=== PATIENT | male | born 2000 | race Caucasian/White ===

== ENCOUNTER 2018-01-11 14:38 | Inpatient (IN) | payer OTHER ==
--- NOTE | 2018-01-11 15:59 | EDPHY ---
H & P Stated Complaint: gen abd pain, N/V, feeling anxious w/SI Time Seen by Provider: 01/11/18 15:58 HPI/ROS: HPI: This is a 17-year-old male who presents with Chief Complaint: gen abd pain, N/V, feeling anxious w/SI Location: psych Quality: Suicidal ideation Duration: 2 months Signs and Symptoms: no fever, no nausea, no vomiting, no hematemesis, no blood in stool, no abdominal bloating, no diarrhea, no back pain, no urinary symptoms , no testicular/groin pain, no indigestion, no chest pain, no shortness of breath Timing: Worse over the last week Severity: Severe Context: Patient has a history of major depression, anxiety disorder, gastric also presents with complaints of worsening despair and depression over the last 2 months since his break-up with his girlfriend 2 months ago. He reports that he is taking his Zoloft daily but does not like the decreased libido side effects. He reports that 1 month ago he attempted suicide. He also has a history of cutting with razors denies any recent cutting. Patient reports that he came to the emergency room today because he does not feel safe being by himself. He is originally from [place], [place]. 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 Patient reports that he has had decreased appetite, increased sleeping patterns, excessive crying. 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 He takes Nexium 20 mg twice daily. He complains of generalized abdominal pain worse in the epigastric area accompanied by nausea. He believes when he is crying he vomits due to"being worked up." He denies any fever, back pain, testicular groin pain, urinary symptoms. He has not eaten in 1 day due to decreased appetite. Denies any diarrhea. Modifying Factors: None Comment: ROS: A comprehensive 10 system review of systems is otherwise negative aside from elements mentioned in the history of present illness. MEDICAL/SURGICAL/SOCIAL HISTORY: Medical history: Gastric ulcer, anxiety, depression Surgical history: Denies Social history: Never smoked. Family history noncontributory. CONSTITUTIONAL: Flat affect, nontoxic appearing, teenage male, awake and alert, no obvious distress HEENT: Atraumatic and normocephalic, PERRL, EOMI. Nares patent; no rhinorrhea; no nasal mucosal edema. Tympanic membranes clear. Oropharynx clear, no exudate and moist pink mucosa. Airway patent. No lymphadenopathy. No meningismus. Cardiovascular: Normal S1/S2, regular rate, regular rhythm, without murmur rub or gallop. PULMONARY/CHEST: Symmetrical and nontender. Clear to auscultation bilaterally. Good air movement. No accessory muscle usage. ABDOMEN: Soft, nondistended, nontender, no rebound, no guarding, no peritoneal signs, no masses or organomegaly. No CVAT. EXTREMITIES: 2/2 pulses, strength 5/5, no deformities, no clubbing, no cyanosis or edema. NEUROLOGICAL: no focal neuro deficits. GCS 15. SKIN: Warm and dry, no erythema. no rash. Good capillary refill. PSYCH: Very self critical, Poor eye contact, no flight of ideas, organized thought process, fair insight and judgment, no auditory hallucinations, no visual hallucinations,+ suicidal ideation with a plan, no homicidal ideation, no paranoia Source: Patient Exam Limitations: No limitations - Medical/Surgical History Hx Asthma: No Hx Chronic Respiratory Disease: No Hx Diabetes: No Hx Cardiac Disease: No Hx Renal Disease: No Hx Cirrhosis: No Hx Alcoholism: No Hx HIV/AIDS: No Hx Splenectomy or Spleen Trauma: No Other PMH: gastric ulcer. anxiety depression - Social History Smoking Status: Never smoked Constitutional: Initial Vital Signs Temperature (C) 36.5 C 01/11/18 14:42 Heart Rate 85 01/11/18 14:42 Respiratory Rate 18 01/11/18 14:42 Blood Pressure 134/84 H 01/11/18 14:42 O2 Sat (%) 97 01/11/18 14:42 O2 Delivery Mode Room Air Allergies/Adverse Reactions: No Known Allergies Allergy (Unverified 01/11/18 14:41) Home Medications: Medication Instructions Recorded Nexium 01/11/18 Prozac 10 MG (*) 01/11/18 Medical Decision Making - Diagnostics Imaging Results: Imaging Impressions Abdomen X-Ray 01/11/18 16:09 Impression: Negative. ED Course/Re-evaluation: 1605: Placed on M1 hold upon arrival due to patient having severe major depression with suicidal ideation with a plan. Labs, abdominal x-ray to evaluate for free air secondary to gastric perforation , oral medications, urine drug screen ordered I suspect that his abdominal pain is related to his gastric ulcer and anxiety. Patient was given GI cocktail with adequate relief of pain. Abdomen is soft and nontender. Doubt surgical process. 1640: Urine drug screen positive for marijuana. 1645: Abdominal x-ray reviewed via PACs and shows nonobstructive bowel gas pattern. No free air. 1754: Labs reviewed. No signs of leukocytosis/anemia/platelet dysfunction/EVERETT/ elevated LFTs/electrolyte imbalance. Medically clear for mental health evaluation. 2051: Mental health recommends inpatient psychiatric admission. Patient has been accepted at [address] [place] [address] Kelley[address] EMTALA form completed by Dr. Pitts. This patient was seen under the supervision of my secondary supervising physician. I evaluated care for this patient independently. Discussed this patient with Dr. Pitts. Differential Diagnosis: Differential diagnosis includes but is not limited to major depression, bipolar disorder, suicidal ideation, generalized anxiety disorder. - Data Points Laboratory Results: Laboratory Results 01/11/18 16:50 01/11/18 16:50 01/11/18 01/11/18 01/11/18 16:50 16:50 16:00 WBC 9.07 10^3/uL 10^3/uL (3.80-9.50) RBC 7.89 10^6/uL H 10^6/uL (4.40-6.38) Hgb 15.6 g/dL g/dL (13.7-17.5) Hct 49.2 % % (40.0-51.0) MCV 62.4 fL L fL (81.5-99.8) MCH 19.8 pg L pg (27.9-34.1) MCHC 31.7 g/dL L g/dL (32.4-36.7) RDW 19.3 % H % (11.5-15.2) Plt Count 215 10^3/uL 10^3/uL (150-400) MPV TNP Neut % (Auto) 67.7 % % (39.3-74.2) Lymph % (Auto) 22.2 % % (15.0-45.0) [place] % (Auto) 7.2 % % (4.5-13.0) Eos % (Auto) 2.3 % % (0.6-7.6) Baso % (Auto) 0.3 % % (0.3-1.7) Nucleat RBC Rel Count 0.0 % % (0.0-0.2) Absolute Neuts (auto) 6.14 10^3/uL 10^3/uL (1.70-6.50) Absolute Lymphs (auto) 2.01 10^3/uL 10^3/uL (1.00-3.00) Absolute Monos (auto) 0.65 10^3/uL 10^3/uL (0.30-0.80) Absolute Eos (auto) 0.21 10^3/uL 10^3/uL (0.03-0.40) Absolute Basos (auto) 0.03 10^3/uL 10^3/uL (0.02-0.10) Absolute Nucleated RBC 0.00 10^3/uL 10^3/uL (0-0.01) Immature Gran % 0.3 % % (0.0-1.1) Immature Gran # 0.03 10^3/uL 10^3/uL (0.00-0.10) Platelet Estimate Pending Smear Review By Pending Sodium 139 mEq/L mEq/L (135-145) Potassium 4.0 mEq/L mEq/L (3.3-5.0) Chloride 102 mEq/L mEq/L (97-110) Carbon Dioxide 28 mEq/l mEq/l (22-31) Anion Gap 9 mEq/L mEq/L (8-16) BUN 10 mg/dL mg/dL (7-23) Creatinine 0.9 mg/dL mg/dL (0.7-1.3) Estimated GFR > 60 Glucose 95 mg/dL mg/dL (70-100) Calcium 10.4 mg/dL mg/dL (8.5-10.4) Total Bilirubin 0.9 mg/dL mg/dL (0.1-1.4) AST 20 IU/L IU/L (17-59) ALT 26 IU/L IU/L (21-72) Alkaline Phosphatase 88 IU/L IU/L (38-126) Total Protein 7.9 g/dL g/dL (6.3-8.2) Albumin 4.6 g/dL g/dL (3.5-5.0) Urine Opiates Screen NEGATIVE (NEGATIVE) Urine Barbiturates NEGATIVE (NEGATIVE) Ur Phencyclidine Scrn NEGATIVE (NEGATIVE) Ur Amphetamine Screen NEGATIVE (NEGATIVE) U Benzodiazepines Scrn NEGATIVE (NEGATIVE) Urine Cocaine Screen NEGATIVE (NEGATIVE) U Marijuana (THC) Screen NON-NEGATIVE H (NEGATIVE) Ethyl Alcohol < 10 mg/dL mg/dL (0-10) Medications Given: Discontinued Medications Al Hydroxide/Mg Hydroxide (Maalox Susp) 30 ml PO ONCE ONE Stop: 01/11/18 16:10 Last Admin: 01/11/18 16:42 Dose: 30 ml Hyoscyamine Sulfate (Levsin, Hyomax-Sl) 0.25 mg PO ONCE ONE Stop: 01/11/18 16:10 Last Admin: 01/11/18 16:42 Dose: 0.25 mg Lidocaine (Lidocaine 2% Viscous) 15 ml PO ONCE ONE Stop: 01/11/18 16:10 Last Admin: 01/11/18 16:42 Dose: 15 ml Departure - Departure Disposition: [facility] IP Clinical Impression: Severe major depression without psychotic features, Depression with suicidal ideation Condition: Fair
[2018-01-11] MEDS ORDERED: HYOSCYAMINE SULFATE 0.125 MG TAB PO ONE (16:09)
[2018-01-11] MEDS ORDERED: MAG HYDROX/AL HYDROX/SIMETH 30 ML UDCUP PO ONE (16:09)
[2018-01-11] MEDS ORDERED: LIDOCAINE 2% VISCOUS 15 ML UDCUP PO ONE (16:09)
[2018-01-11 17:56] LABS: PLATELET COUNT 215 10^3/uL (150-400)
--- NOTE | 2018-01-11 20:16 | ASMTTLCEVL ---
TLC Evaluation - Basic Information Evaluation Start Date and 01/11/2018 06:45 PM Time Hospital Status Answers: M1 Hold 72-hr M1 Hold Start Date 01/11/2018 04:05 PM and Time Patient statement Notes: Aggie been really struggling with suicidal thoughts and depression but more anxiety than depression. Narrative Notes: Pt is a 17 year old male who presented to [facility] Ed with gastric but also presents with complaints of worsening despair and depression over the last 2 months since his break up with his GF 2 months ago. Pt stated he feels like he has been doing everything he can to feel better and he has reached out to suicide prevention hotlines, and reached out to his school counselors and therapist at [facility] 1x a month but states he thinks it still gets the best of him. Pt states he needs a med change. He states he has been taking Prozac for 1 .5 years and has had negative side effects such as low libido, apathy and low energy and stated these side effects are the same regardless of the dose. Pt reports he has been on 40 mg at one point and had the same side effects. Pt also reports he was on Zoloft but that drug was not helpful. Pt reported last night he had a plan and thought about hanging himself but stated his protective factors are, I always want to give it one more chance and stated, I dont think I would have done it.Pt is denying SI at this time and states, I do want to get my life back on track. Diagnosis History Notes: Pt reported a hx of anxiety and depression. Prior suicide attempts Notes: Pt denied any suicide attempts but reported a hx of cutting. Per ED physician report, pt reported a suicide attempt 1 month ago which pt is denying to both this sign writer hand and nurse. Prior hospitalizations Notes: Pt denied any prior hospitalizations. Treatment Responses Notes: N/A History of violence Notes: Pt denied any hx of violence. Therapist: [facility] Medications (name, dosage, route, freq uency) Notes: Prozac 10 mg; nexium Allergies/Reaction Notes: Nka Sleep Notes: Pt reports decreased sleep. Appetite Notes: Pt reports a decrease in appetite and weight loss of 20 lbs in the past 2 months Medical/Surgical history Notes: Pt reports having gastrointestinal issues. Substance use history (frequency, intensity, his tory, duration) Notes: Pt denied any drug use but utox was positive for THC. Pt reports drinking alcohol occasionally which he just started doing 2 months ago. Pt reports he never gets drunk, just drinks socially. Family composition Notes: Pt reports his parents live in [place] and reported that his parents do not want to acknowledge his depression, and became upset initially when they found out he was on antidepressants. Pt sated eventually they became more accepting of the issue. Need for family Answers: No participation in patient's care Family psychiatric/substance abuse history Notes: Pt did not report any family hx. Developmental history Notes: Pt reported growing up in [place] and [place] and reported having a good childhood. 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 Pt denied any childhood abuse. Abuse concerns Answers: None Marital status/children Notes: Unmarried, no children. Living situation Notes: Pt lives in [place], no children. Sexual history/orientation Notes: Heterosexual Peer support/family strengths Notes: Pt reports he has really good friends. 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 Pt stated he normally is doing really well but this semester he has started slipping a little. 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 Notes: None reported. Legal Notes: Pt denied any legal problem. Sabianist/Spiritual Notes: None reported. Leisure Notes: Playing tennis, hanging with friends, watching interesting shows.FriendsGori Collateral Notes: Friend-Gori Patient's strengths Answers: Artistic/Creative/Musical (Please select at least TWO strengths): Intelligent Willingness TLC Evaluation - Mental Status Exam Appearance: Answers: Appropriate Eye Contact: Answers: Good/Direct Mood: Answers: Sad Affect: Answers: Anxious Behavior: Answers: Cooperative Anxious Speech: Answers: Relevant Logical Clear Thought Process: Answers: Organized Oriented Alert Insight: Answers: Good Judgement: Answers: Fair Depression Answers: Diminished Interest Signs/Symptoms: Diminished Pleasure Sad Mood Anxiety Signs/Symptoms Answers: Generalized Anxiety Hallucinations: Answers: None Pt reported to have Answers: No suicidal/self-injuring ideation/behavior? Pt reported to be making Answers: Yes suicidal/self-injuring threats? Pt reported to be making Answers: No aggression/assault threats? Pt exhibits inability to Answers: No care for self/grave disability? Ideation/behavior is Answers: Yes chronic? Patient has a specific Answers: Yes plan? Pt has access to means to Answers: Yes execute the plan? Ideation involves Answers: Yes serious/lethal intent? Ideation has Answers: No delusional/hallucinatory content? History of Answers: Yes suicidal/self-injuring ideation, behavior, or threats? History of Answers: No aggressive/assaultive ideation, behavior, or threats? History of serious Answers: No physical harm to self/others while in treatment setting? TLC Evaluation - Suicide/Homicide Risk Suicide Risk Factors: Answers: < 20 or > 40 Years of Age Anxiety/Panic, Severe Major Depression Self-Harm Behaviors Current Suicidal Answers: No Ideation? Current Suicidal Ideation Answers: Yes in the Past 48 Hours? Current Suicidal Ideation Answers: Yes in the Past Month? Current Suicidal Answers: Yes Ideation, Worst Ever? Suicide Internal Answers: Absence of Psychosis Protective Factors: Suicide External Answers: Positive Therapeutic Protective Factors: Relationships Social Support Ranking of patient's Answers: Severe suicidal risk: Ranking of patient's Answers: Low homicidal risk: TLC Evaluation - Wrap-up AXIS I Diagnosis (include DSM-V and ICD-10 codes), must also be entered in [employer] which is the source of truth. Notes: Major Depressive Disorder, recurrent, severe 296.33 (F33.2) Generalized Anxiety Disorder 300.02 (F41.1) In consultation with [facility] ED physician, Malcolm Pitts MD and on-call psychiatrist, Arielle Kelley MD, both concurred that pt appears to meet 27-65 criteria requiring psychiatric hospitalization as pt appears to be at risk of harm to self due to a mental illness condition. Pt was given the 3[facility] prohibited belongings list while in the ED. Evaluation End Date and 01/11/2018 08:15 PM Time (HH:APPLE): Date Signed: 01/11/2018 08:15 PM Electronically Signed By:Anais Ritter
--- NOTE | 2018-01-11 20:17 | ASMTTCLDSP ---
TLC Discharge Disposition Disposition: Answers: Admit Discharge Concerns/Recommendations: Notes: In consultation with [facility] ED physician, Malcolm Pitts MD and on-call psychiatrist, Arielle Kelley MD, both concurred that pt appears to meet 27-65 criteria requiring psychiatric hospitalization as pt appears to be at risk of harm to self due to a mental illness condition. Pt was given the 3N prohibited belongings list while in the ED. Was patient given the Answers: Yes Inpatient Behavioral Health Prohibited Belongings List while in the ED? For inpatient Arielle Kelley MD admission, the following psychiatrist agreed to accept patient for admission to Behavioral Health ([facility]): Date Signed: 01/11/2018 08:16 PM Electronically Signed By:Anais Ritter
[2018-01-11] MEDS ORDERED: MAG HYDROX/AL HYDROX/SIMETH 30 ML UDCUP ONE (23:11)
[2018-01-11] MEDS ORDERED: ACETAMINOPHEN 325 MG TAB PO PRN (23:30)
[2018-01-11] MEDS ORDERED: FLUoxetine 10 MG CAP PO SCH (23:30)
[2018-01-11] MEDS ORDERED: LORazepam 0.5 MG TAB PO PRN (23:30)
[2018-01-11] MEDS ORDERED: NICOTINE POLACRILEX 2 MG GUM B PRN (23:30)
[2018-01-11] MEDS ORDERED: MAG HYDROX/AL HYDROX/SIMETH 30 ML UDCUP PO PRN (23:30)
[2018-01-11] MEDS ORDERED: MAGNESIUM HYDROXIDE 30 ML UDCUP PO PRN (23:30)
[2018-01-11] MEDS: MELATONIN 3 MG TAB PO PRN (23:36)
--- NOTE | 2018-01-12 08:46 | ASMTBHMTP ---
Master Treatment Plan Master Treatment Plan Answers: Depressed Mood with for: Suicidal Ideation Date: 01/11/2018 Diagnosis on Admission: Major Depressive Disorder, Recurrent, Severe 296.33 (F33.2) Expected length of stay: 3-5 days Reason for admission: Notes: Pt is a 17 year old male who presented to [facility] Ed with gastric but also presents with complaints of worsening despair and depression over the last 2 months since his break up with his GF 2 months ago. Pt stated he feels like he has been doing everything he can to feel better and he has reached out to suicide prevention hotlines, and reached out to his school counselors and therapist at [address] a month but states he thinks it still gets the best of him. Pt states he needs a med change. He states he has been taking Prozac for 1 .5 years and has had negative side effects such as low libido, apathy and low energy and stated these side effects are the same regardless of the dose. Pt reports he has been on 40 mg at one point and had the same side effects. Pt also reports he was on Zoloft but that drug was not helpful. Pt reported last night he had a plan and thought about hanging himself but stated his protective factors are, I always want to give it one more chance and stated, I dont think I would have done it.Pt is denying SI at this time and states, I do want to get my life back on track. Patient's stated presenting problems: Notes: "to get sooner appointments for out-patient therapies." Patient's goals for treatment: Notes: "to find resources for anxiety, depression and start taking medications." Patient's strengths: Notes: smart Identify supports outside of hospital: Notes: family and friends Discharge criteria: Notes: Suicidal Ideation will resolve and patient will have a plan to safely manage recurrent suicidal ideaitons. Initial disposition plan/considerations: Notes: "go back to my apartment and re-start school." Master Treatment Plan Required Signatures Psychiatrist signature: Answers: Psychiatrist: RN on-shift signature: Answers: RN: Patient signature: Answers: Patient: Date Signed: 01/12/2018 08:24 AM Electronically Signed By:Jose Enrique Guy
[2018-01-12] MEDS ORDERED: VENLAFAXINE XR 75 MG CAP PO ONE (10:49)
--- NOTE | 2018-01-12 11:20 | ASMTBHDC ---
Notes Note: Notes: CC confirmed client's discharge follow up care: Follow up with: Ahsan ([facility] location) [address] [place] [id number] Next Appt: WednesdayJanuary 18, (01/18/18) at 11am Date Signed: 01/12/2018 11:19 AM Electronically Signed By:Jose Enrique Guy
[2018-01-12] MEDS ORDERED: PANTOPRAZOLE SODIUM 40 MG TAB PO PRN (12:36)
--- NOTE | 2018-01-12 14:07 | BAPA ---
DATE OF SERVICE: 01/12/2018 CHIEF COMPLAINT: "I went to the ER because I've been having increased suicidal thoughts and feeling more depressed and I just feel like I could use some help. " HISTORY OF PRESENT ILLNESS: From the ER note dated 01/11/2018, the patient presented to the ER with worsening despair and depression over the past 2 months since his break-up with his girlfriend 2 months ago. The patient reports a recent suicide attempt 1 month ago. There are no details regarding the suicide attempt noted in the ED note. The patient reports a history of cutting with razors and denied any recent cutting. The patient reports he presented to the emergency room because he does not feel safe being by himself. The patient was admitted involuntarily and is on an M1 hold due to being a danger to himself and is hospitalized for safety crisis stabilization and medication evaluation. The patient describes to this OFFICE EQUIPMENT MECHANIC circumstances that led to current hospitalization as a recent break-up about 2 months ago with his girlfriend, increased stressor with starting college, and reports a history of having suicidal ideation about every month or so. The patient reports no history of specific plan to complete suicide. The patient reports to this OFFICE EQUIPMENT MECHANIC current mental health illness as depression and anxiety. The patient reports he was not using alcohol or any other substances prior to his hospitalization and no alcohol or substances contributed to his current hospitalization. The patient reports no current psychiatric symptoms to this OFFICE EQUIPMENT MECHANIC. The patient describes this OFFICE EQUIPMENT MECHANIC abuse history as none. The patient denies psychiatric symptoms, including symptoms of depression, juan, anxiety, ADHD, OCD, PTSD, psychosis, and any other symptom of psychiatric disorder. The patient does report history of depression symptoms and anxiety symptoms. The patient reports he has felt depressed mood in the past, reports fatigue and loss of energy, feelings of worthlessness and excessive guilt, and does report a history of suicidal ideation. The patient reports a history of anxiety symptoms , including excessive worry. Reports that at times it is difficult to control his worry, feels restless and keyed up and on edge at times, difficulty concentrating, and at times sleep disturbance. The patient describes to this OFFICE EQUIPMENT MECHANIC current psychiatric symptoms are impacting managing his day-to-day life, described as attending to household responsibilities without difficulty. 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 The patient reports he is currently socially active and socializes without any difficulty. The patient reports he gets along well with his family and his family is very supportive. The patient reports he is doing well in school, currently getting A 's and B's in his geovanny year, and is currently studying computer programming. The patient reports hobbies as playing tennis and flying remote control airplanes. The patient states he is generally satisfied with his life. The patient denies current suicidal ideation and reports last suicidal ideation was yesterday prior to his admission. The patient reports several protective factors or reasons to live, including family and friends. The patient reports future goal as focusing more on school. The patient reports his main support network is his family and reports "They are always there for me." The patient denies current homicidal ideation. The patient denies current self-injurious ideation. The patient reports he currently sees his primary care provider for medications and sees a therapist at [facility]. PAST PSYCHIATRIC HISTORY: The patient describes to this OFFICE EQUIPMENT MECHANIC the following psychiatric history: The patient reports past diagnoses of both depression and anxiety. The patient reports past psychotropic medication trials as Prozac and Zoloft. The patient reports he did not like the side effects from these medications, including feeling more fatigued after taking them and reports history of decreased libido on these medications. The patient reports he has never been hospitalized in inpatient psychiatric hospital. The patient denies any history of withdrawal from drugs or alcohol. The patient denies history of a suicide attempt. The patient reports self-injurious behavior approximately 8- 9 months ago and reports cutting. The patient reports he has never done this before and has not done it since. ALLERGIES: No known allergies. CURRENT MEDICATIONS: Prozac 10 mg p.o. at bedtime as the patient's current psychotropic medication for anxiety and depression. PAST MEDICAL HISTORY: The patient describes to this OFFICE EQUIPMENT MECHANIC the following pertinent past medical history: The patient denies history of neurological brain disease , traumatic brain injury or concussions. The patient denies any history of major illnesses and denies any history of major hospitalizations. SOCIAL HISTORY: The patient describes to this OFFICE EQUIPMENT MECHANIC the following social history: The patient reports he was born in [place] and raised the majority of his life in [place], [place] by both parents. The patient reports he currently lives in [place], [place] with 3 roommates. The patient reports meeting all his developmental milestones. Reports no learning delays or difficulties and describes his sexual orientation as heterosexual. The patient reports he is currently not in a relationship, has never been and has no children. 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 He states he is currently a geovanny in college. The patient denies any history of duty, reports no muslim or spiritual practice, and denies any past or current legal problems. SUBSTANCE USE HISTORY: The patient reports he has drank alcohol 2-3 times in his entire life. The patient denies a history of nicotine, marijuana, meth, cocaine, crack, heroin, prescription medication abuse, or any other abuse of substances. FAMILY PSYCHIATRIC HISTORY: The patient describes to this OFFICE EQUIPMENT MECHANIC the following family psychiatric history: The patient reports no family history of mental illness, no family history of suicide, and no family history of substance abuse. ADMISSION LABS AND STUDIES: CBC from 01/11/2018 within normal limits except RBC was elevated at 7.89, MCV was low at 62.4, MCH was low at 19.8, MCHC was low at 31.7, RDW was elevated at 19.3. BMP from 01/11/2018 within normal limits. Hemoglobin A1c from 01/11/2018 within normal limits. Liver function tests from 01/11/2018 within normal limits. Fasting lipid panel from 2017 within normal limits except cholesterol was elevated at 177, non-HDL cholesterol was elevated at 139. Toxicology screen from 01/11/2018 was non- negative for THC, negative for all other substances of abuse, and negative for ethyl alcohol. MENTAL STATUS EXAM: DIAGNOSIS: 1. Major depressive disorder, severe, with anxious distress. 2. Adjustment disorder with mixed disturbance of emotions and conduct. 3. Cannabis use disorder is suspected. 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 The patient requires continued inpatient care because of recent suicidal ideation. The patient presents with problems of increased depression and suicidal ideation that have been steadily increasing over the past several months. The patient's life has been affected by these problems, including the crisis that led to this hospitalization. The exacerbation of symptoms was likely preceded by patient's recent break-up with his girlfriend approximately 2 months ago. The patient has a past psychiatric history of depression and anxiety that have been treated with both Prozac and Zoloft and the response to treatment has been poor due to the patient's complaints of side effects. The patient is a moderate to high suicide safety risk due to recent suicidal ideation. Protective factors while hospitalized include ongoing safety checks, active involvement in treatment, and support from the treatment team. The patient could benefit from inpatient hospitalization for safety crisis stabilization and medication evaluation. PLAN: (1) Psychotropic medications: After reviewing options, risks, and benefits with the patient, the patient agrees to discontinue Prozac and begin a trial of Effexor XR 75 mg p.o. daily. No other medication changes at this time as more time is needed to determine ongoing tolerability and efficacy. Plan is to continue to observe patient for response and side effects from medications, and ongoing monitoring and evaluation. (2) Review with patient informed consent and recommendations for psychotropic medication treatment listed below (3) Labs: no additional labs at this time. (4) Therapy: continue milieu and group therapy (5) Further investigation including gathering information from patients relatives and review of past case records to inform treatment plan. (6) Safety/Wellness plan and follow-up outpatient appointments to be established prior to discharge. Next steps are for patient to meet with care transport nurse to plan a safe discharge plan and establish outpatient services for ongoing treatment. (7) Confer with inpatient treatment team regarding treatment plan. (8) Legal status: M1 (9) Consider discharge on if patient is in stable condition, safe, and has a safe discharge plan. (10) Substance abuse interventions: cannabis ESTIMATED LENGTH OF STAY: 1-3 days PSYCHOTROPIC MEDICATION TREATMENT INFORMED CONSENT and RECOMMENDATIONS: Review nature of condition, diagnosis, and prognosis. Review nature and purpose of psychotropic medication treatment. Review type of psychotropic medications being ordered. Review risk and benefits of psychotropic medication treatment. Review probable length of time will need to take medications. Review risk and benefits of not undergoing psychotropic medication treatment. Review alternative treatments to psychotropic medications. Review psychotropic medications contraindications, drug-drug interactions, side effects, and importance of reporting any side effects to a psychiatric provider or nurse during inpatient hospitalization, and upon discharge to patients psychiatric outpatient provider, primary care provider, or other health home care associate. Review importance of asking a nurse, psychiatric provider, or primary care provider any questions or problems concerning the psychotropic medications. Verifty patient understands the information that has been provided, and understands, accepts, and agrees to psychotropic medications. Review patients safety plan and importance of patient to communicate to staff while hospitalized if patient is ever a danger to self/others, or unable to care for self, and upon discharge, the importance for patient to contact [facility] or [facility], or go to the nearest emergency room, if patient is ever a danger to self/others, or unable to care for self. Recommend that upon discharge patient establish medication management treatment with a psychiatric provider, establishes routine therapy appointments, and follow-up with primary care provider. Verify patient understands and agrees to these recommendations. /[id number]/MODL MTDD
--- NOTE | 2018-01-12 17:28 | BCON ---
INTERNAL MEDICINE CONSULTATION DATE OF CONSULTATION: 01/12/2018 REFERRING PHYSICIAN: Arielle Kelley MD REASON FOR REFERRAL: Medical clearance for inpatient behavioral health stay. HISTORY OF PRESENT ILLNESS: This patient came to the emergency department yesterday complaining of d epression for 2 months since a break-up with his girlfriend. He reported a suicide attempt approxima tely a month prior and some cutting with razors in the past. He did not feel safe being by himself. He was evaluated by the mental health team and admitted for further psychiatric care. He also was complaining of abdominal pain with a history of gastric ulcer and currently complains of abdominal pain and reports that he has not been taking his usual proton pump inhibitor for which his outpatient prescription is esomeprazole. He is otherwise without any acute complaints. PAST MEDICAL HISTORY: 1. Depression. 2. Gastric ulcer. MEDICATIONS: 1. Esomeprazole. 2. Fluoxetine 10 mg daily. ALLERGIES: There are no known drug allergies. 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 He is a no nsmoker and nondrinker. FAMILY HISTORY: Noncontributory. REVIEW OF SYSTEMS: He denies weight loss. He reports his appetite has returned. He denies nausea, vomiting, constipation, or diarrhea. Otherwise, a 10-point review of systems is negative. PHYSICAL EXAM: VITAL SIGNS: Blood pressure is 125/77, heart rate is 88, respiratory rate is 14, oxy gen saturation is 97% on room air. Temperature is 36.9 degrees centigrade. His weight is 65.8 kg fo r a body mass index of 20.8. GENERAL: This is a well-nourished, well-developed man sitting up in d, wearing street clothes, cooperative and in no acute distress. HEENT: Extraocular movements are i ntact. Mucous membranes are moist. Dentition is in good condition. He has an uncrowded airway, Mal lampati class 2. NECK: Supple. HEART: Regular rate and rhythm with no murmurs, rubs, or gallops. LUNGS: Clear to auscultation bilaterally. ABDOMEN: Benign. EXTREMITIES: No cyanosis, clubbing, or edema. NEUROLOGIC: He is alert and oriented x3. There is no focal weakness, and sensation is in tact to light touch. LABORATORY DATA: From the emergency department: CBC showed normal hemoglobin and hematocrit, but he had a low MCV at 62.4 and a low MCH at 19.8. Peripheral smear showed polychromasia, microcytosis, a nd elliptocytes. Serum chemistry showed normal renal function, electrolytes, and liver functions. H emoglobin A1c was normal at 5.7. Lipid panel showed a slightly high cholesterol at 177 with an LDL o f 119, and an HDL of 38. Toxicology screen in the urine was non-negative for marijuana, but otherwis e negative for substances of abuse. Toxicology screen in the serum was negative for ethyl alcohol. ASSESSMENT/RECOMMENDATIONS: 1. Mental health issues pending further evaluation and management per Psychiatry and the mental [facility] team. 2. Thalassemia. He reports that his mother has it also. He has a normal hemoglobin and hematocrit. There is no need for any further evaluation or management. He can follow up with primary care. 3. Abdominal pain with a prescription for esomeprazole and history of a gastric ulcer. Pantoprazole has been ordered on a p.r.n. basis and I will schedule it at 40 mg twice daily. He can follow up wi th his primary care provider or Gastroenterology after discharge. I see no medical contraindications to this patient's continued stay on the inpatient [facility] or to any psychiatric medications or procedures. Thank you very much for including me in the care of this patient and please do not hesitate to contac t me or the hospitalist service, should there be need for further medical evaluation. /[id number]/MODL
[2018-01-12] MEDS: PANTOPRAZOLE SODIUM 40 MG TAB PO SCH (19:03)
[2018-01-12] MEDS: MELATONIN 3 MG TAB PO PRN (21:03)
--- NOTE | 2018-01-12 21:54 | PDMN ---
Medical Necessity Medical necessity: Pt meets inpt criteria per MD order and [facility] B-008, Major Depressive Disorder, Adult: Inpatient Care, 3 days. Pt admitted on M1 Hold due to being danger to self w/ major depressive disorder, severe, w/anxious distress , adjustment disorder, and cannabis use disorder requiring inpt psychiatric hospitalization for safety crisis stabilization and medication evaluation, anticipate>2MN.
[2018-01-13 06:37] VITALS: BP 100/60
[2018-01-13] MEDS: PANTOPRAZOLE SODIUM 40 MG TAB PO SCH (08:24)
[2018-01-13] MEDS ORDERED: VENLAFAXINE XR 75 MG CAP PO SCH (09:00)
--- NOTE | 2018-01-13 13:48 | BDS ---
REASON FOR ADMISSION: From the ED note dated 01/11/2018, this patient presented to the ED with complaints of worsening despair and depression over the last 2 months since his break-up with his girlfriend 2 months ago. The patient reported he presented to the emergency department because he does not feel safe being by himself. The patient was admitted involuntarily on an M1 hold due to being a danger to himself. The patient was admitted for safety, crisis stabilization, and medication management. ADMISSION DIAGNOSES: 1. Major depressive disorder, recurrent episode, severe, with anxious distress. 2. Adjustment disorder with mixed disturbance of emotions and conduct. 3. Cannabis use disorder, mild, is suspected. ADMISSION PHYSICAL EXAM: The patient was seen by Dr. Lisa on 01/12/2018, for an Internal Medicine consultation for medical clearance for inpatient Behavioral Health stay. Dr. Lisa reported he saw no medical contraindications to the patient's continued stay on the inpatient behavioral health unit or to any psychiatric medications or procedures. For further details, please refer to Dr. Lisa's Internal Medicine consultation note dated 01/12/2018. LABORATORY DATA: Admission labs from the emergency department CBC showed normal hemoglobin and hematocrit, but the patient had a low MCV at 62.4 and a low MCH at 19.8. Peripheral smear showed polychromasia, microcytosis, elliptocytes. Serum chemistry showed normal renal function, electrolytes, and liver functions. Hemoglobin A1c was normal at 5.7. Lipid panel showed a slightly high cholesterol at 177 with an LDL at 119, and HDL at 38. Toxicology screen in the urine was non-negative for marijuana, but otherwise negative for substances of abuse. Toxicology screen in the serum was negative for ethyl alcohol. MAJOR PROCEDURES/TESTS: None. HOSPITAL COURSE: The most prominent symptoms and behaviors while the patient was here were moderate anxiety and mild depression. Treatment modalities utilized were milieu and group therapy. Effexor XR 75 mg p.o. daily was started to target depression and anxiety symptoms, was tolerated with no report of side effects and with good response. Patient has improved considerably with no signs of psychiatric symptoms and no psychiatric symptoms expressed at discharge. Patient reports he has improved since admission. States to be in stable condition, feels safe to discharge, and he contracts for safety. Patient 's response to treatment was good. There were no adverse or unexpected results of treatment. The patient was safe throughout his stay, active in treatment, engaged in groups, and was appropriate with staff and other patients. The patient met with the treatment team prior to discharge to assess readiness to discharge and reviewed discharge plan the treatment team consensus is the patient is in stable condition, has a safe discharge plan, and is ready to discharge today. CONDITION AT DISCHARGE: Patient is in stable condition and is no longer a danger to self or others, and is not gravely disabled due to mental illness. Patient is no longer in need of inpatient level of care, and can be safely and effectively treated within the community. The patients level of risk at time of discharge is low. MSE: The patient is casually dressed and with good hygiene , and looks stated age. Patient is sitting, posture is upright, and position is relaxed. Patient appears awake, alert, and responds appropriately and reasonably during interview. Patient is engaged, relates well to interviewer, and emotional facial expression is appropriate to situation and changes appropriately with topic. Patient is cooperative, makes comfortable eye contact , and movements are voluntary, deliberate, coordinated, and smooth and even with no inappropriate movements. Patient makes laryngeal sounds effortlessly and shares conversation appropriately; pace of conversation is appropriate, and stream of talking is fluent; articulation is clear and understandable; word choice is effortless and appropriate for education level; completes sentences, occasionally pausing to think; rate and volume are appropriate for interview and setting. Patient reports mood as euthymic. Patients affect is stable with full variable range, congruent with mood, and appropriate to speech and circumstances. Patient has linear and logical thinking, with no loose associations, tangential thought, thought blocking, concrete thinking, or any other signs of formal thought disorder. Patient denies suicidal and homicidal ideation, and denies hallucinations and delusions. Patient appears to be a reliable historian with sound judgement and good insight into current condition. Patient has no apparent dysfunction in recent or remote memory noted , and no evidence of gross cognitive dysfunction noted at any point during the interview. DISCHARGE DIAGNOSES: 1. Major depressive disorder, recurrent episode, severe, with anxious distress. 2. Adjustment disorder with mixed disturbance of emotions and conduct. 3. Cannabis use disorder, mild is suspected. CURRENT MEDICATIONS: After reviewing options, risks, and benefits, the patient agrees to continue Effexor XR 75 mg p.o. daily. The patient requests prescription for this medication at time of discharge. Prescription for 30 days is provided. The prescription is reviewed with the patient at time of discharge to ensure accuracy and patient understanding. DISPOSITION: The patient left hospital independently and voluntarily with his mother and father after discharge. FOLLOWUP: recruiter coordinator reports the appropriate outpatient follow-up services have been established and outpatient appointments have been scheduled. The patient received written instructions with times and dates of outpatient follow-up appointments. The following follow-up recommendations were provided to the patient at discharge: Continue psychotropic medications as prescribed and attend appointments as scheduled. Report any side effects to a psychiatric outpatient provider, a primary care provider, or other health critical care rn. Address any questions or problems concerning the psychotropic medications with a psychiatric outpatient provider, a primary care provider, or other health critical care rn. Contact [facility] or [facility], or go to the nearest emergency room, if you are ever a danger to yourself/others, or unable to care for yourself. As soon as possible, establish a routine medication management treatment with a psychiatric provider, establish routine therapy appointments, and follow-up with a primary care provider. SUBSTANCE ABUSE BRIEF INTERVENTION: Brief intervention regarding the risks of cannabis abuse is provided to patient with goal to reduce the risk of harm that could result from the continued use of cannabis, with the general aim to investigate the problem, raise awareness of problem, develop a solution with the patient, recommend a specific change or activity, and motivate the patient toward change. Assess substance abuse behavior and give supportive advice about harm reduction, recommend a reduction in hazardous/at-risk consumption patterns, and facilitate referrals for additional specialized treatment with medicare biller. Intermediate goal is for the patient to quit and attend outpatient substance abuse therapy. Intervention focus on intermediate goals to allow for more immediate success in the treatment process to keep the patient motivated. Review following with patient: Cannabis use risks: Short- term use: impaired short-term memory, impaired motor coordination, altered judgement, in high doses paranoia and psychosis. Long-term use addiction, diminished life satisfaction and achievement, symptoms of chronic bronchitis, and increased risk of chronic psychosis disorders if predisposition to such disorders. In withdrawal anger, aggression irritability, anxiety and nervousness, decreased appetite or weight loss, restlessness, and sleep difficulties with strange dreams. OUTPATIENT SUBSTANCE ABUSE TREATMENT: Patient referred to outpatient provider and treatment for continued treatment related to substance abuse. LEGAL COURSE: The patient was admitted on an M1 hold for involuntary inpatient psychiatric hospitalization. The patient discharged today independently and voluntarily. ATTITUDE AT TIME OF DISCHARGE: The patients attitude was positive at time of discharge, and patient reports looking forward to discharging today. The patient reports he feels safe to discharge, is no longer a danger to himself or others, is in stable condition, and contracts for safety. Patient states he will continue medications as prescribed, and establish medication management treatment with an outpatient provider after discharge. Patient reports he understands the information that has been provided to him, and he understands, accepts, and agrees to psychotropic medications. Patient describes internal protective factors as the coping skills he has learned while hospitalized here, and he plans to continue to practice these coping skills after discharge. Patient reports external protective factors as family and friends. LABORATORY/STUDIES: There were no pending labs or studies at time of discharge. ADVANCED DIRECTIVES: There were no advance directives on file, and the patient was full code during this hospitalization. The following psychotropic medication treatment informed consent and recommendations were provided to the patient at time of discharge. Patient reports he understands, accepts, and agrees to the information that has been provided. PSYCHOTROPIC MEDICATION TREATMENT INFORMED CONSENT and RECOMMENDATIONS: Review nature of condition, diagnosis, and prognosis. Review nature and purpose of psychotropic medication treatment. Review type of psychotropic medications being prescribed. Review risk and benefits of psychotropic medication treatment. Review probable length of time will need to take medications. Review risk and benefits of not undergoing psychotropic medication treatment. Review alternative treatments to psychotropic medications. Review psychotropic medications contraindications, side effects, and importance of reporting any side effects to a psychiatric provider, primary care provider, or other health critical care rn. Review importance of her asking a psychiatric provider or primary care provider any questions or problems concerning the psychotropic medications. Review safety plan and the importance to contact [facility] or [facility] , or go to the nearest emergency room, if ever a danger to yourself/others, or unable to care for yourself. Recommend upon discharge to establish routine medication management treatment with a psychiatric provider, establish routine therapy appointments, and follow-up with a primary care provider. Verify patient understands, accepts, and agrees to the information that has been provided. SUICIDE ASSESSMENT FIVE-STEP EVALUATION AND TRIAGE (1) RISK FACTORS: (a) Suicidal behavior: no history of attempt (b) Current/past psychiatric disorders: depression and anxiety (c) Rob symptoms: none expressed or exhibited (d) Family history: none (e) Precipitants/Stressors/Interpersonal: none (f) Change in treatment: discharge from psychiatric hospital (g) Access to firearms: none (2) PROTECTIVE FACTORS: (a) Internal: coping skills learned while hospitalized (b) External: family and friends (3) SUICIDAL INQUIRY: (a) Ideation: none; last SI was prior to admission (b) Plan: none (c) Behaviors: none; patient was safe throughout stay with no suicidal or parasuicidal behaviors (d) Intent: none (4) RISK LEVEL: Low: modifiable risk factors, strong protective factors; no suicidal or self-injurious ideation. Intervention: treatment plan to reduce symptoms including medications and therapy, provided emergency/crisis numbers, established follow-up plan, and family is supportive. /[id number]
== END 2018-01-13 11:54 | disposition home or self-care (01) | DRG 885 ==
LOC: BBEH 22:50
PROVIDERS: ADMIT Psychiatry & Neurology Behavioral Neurology & Neuropsychiatry; ATTEND Psychiatry & Neurology Behavioral Neurology & Neuropsychiatry
DX: F32.3 Major depressive disorder, single episode, severe with psychotic features (principal); F43.25 Adjustment disorder with mixed disturbance of emotions and conduct; F12.959 Cannabis use, unspecified with psychotic disorder, unspecified
CPT/HCPCS: 80305; G0480

== ENCOUNTER 2018-06-11 14:49 | Emergency (ER) | payer OTHER | END 2018-06-11 16:08 | disposition home or self-care (01) ==